=== PATIENT | male | born 1965 | race Hispanic/Latino ===

== ENCOUNTER 2018-10-13 12:12 | Emergency (ER) | payer OTHER ==
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
[2018-10-13 12:18] VITALS: BP 136/99
[2018-10-13] MEDS ORDERED: AUGMENTIN 875 MG PO ONE (13:09)
[2018-10-13] MEDS ORDERED: IBUPROFEN PO ONE (13:09)
[2018-10-13] MEDS ORDERED: NACL 0.9% IR ONE (13:09)
[2018-10-13] MEDS ORDERED: BOOSTRIX IM ONE (13:09)
[2018-10-13] MEDS ORDERED: TRIPLE ANTIBIOTIC TP ONE (13:09)
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
--- NOTE | 2018-10-13 13:17 | XRay Report ---
Right hand, 3 views INDICATION: hand pain. COMPARISON: None. IMPRESSION: No acute osseous or soft tissue abnormality. No significant DJD. Signer Name: Weston Flynn Jr, MD Signed: 10/13/2018 1:12 PM Workstation Name: [id number]
== END 2018-10-13 13:39 | disposition home or self-care (01) ==
LOC: ED 12:12
DX: S60.031A Contusion of right middle finger without damage to nail, initial encounter (principal); F17.200 Nicotine dependence, unspecified, uncomplicated; Y04.1XXA Assault by human bite, initial encounter; Y93.89 Activity, other specified; Y92.89 Other specified places as the place of occurrence of the external cause; Y99.8 Other external cause status
CPT/HCPCS: 90471; 90715; A6250